=== PATIENT | female | born 1955 | race Asian ===

== ENCOUNTER 2017-12-07 03:24 | Emergency (ER) | payer MEDICAID ==
[~2017-12-07] VITALS: Ht 162.6 cm; Wt 45.4 kg
--- NOTE | 2017-12-07 04:22 | Emergency Room Report ---
History of Present Illness General Chief Complaint: CPR Source: Patient, EMS Present Illness HPI Is a 62-year-old [place] female came in as a CODE BLUE. She has a history of renal failure, cardiac history with a pacemaker and currently has some type of blood cancer that she is currently undergoing chemotherapy. She collapsed in front of her daughter and they called 911. Per EMS she was pulseless and no respiration. They performed CPR. They put an IO and gave her a total of 4 epinephrine and and one bicarbonate. She came in CPR in progress with bag-valve -mask. CPR continued here and she receive 2 more doses of epinephrine. There was never any spontaneous return of pulse. I did a bedside ultrasound of the heart and it showed no cardiac activity. A code was called and she pronounced at 3:30 AM. Allergies: Coded Allergies: UNABLE TO ASSESS (Unverified , 12/07/17) Patient History Past Medical History: see triage record, old chart reviewed Past Surgical History: none Pertinent Family History: none Social History: Denies: smoking Now: No Immunizations: other Reviewed Nursing Documentation: PMH: Agreed; PSxH: Agreed Nursing Documentation-PMH Past Medical History: No History, Except For Hx Pacemaker: Yes Hx Cancer: Yes - "Blood cancer" Hx Dialysis: Yes - Dialysis cath. on right upper chest Review of Systems All Other Systems: limited - secondary to patient's cardiac arrest Physical Exam Vital Signs Date Time Temp Pulse Resp B/P (MAP) Pulse Ox O2 Delivery O2 Flow Rate FiO2 12/07/17 03:25 0 0 12/07/17 03:25 85 Ambu-Bag 12/07/17 03:37 95.2 95.2 no pulse, no respiration Sp02 EP Interpretation: abnormal General Appearance: severe distress - unresponsive Head: normocephalic Eyes: bilateral eye Scleral Injection ENT: moist mucus membranes Neck: supple Respiratory: other - no respiration without [id number] Cardiovascular #1: other - no pulse without CPR; dialysis catheter in right upper chest. Pacemaker Gastrointestinal: soft Musculoskeletal: swelling - bilateral lower extremities Neurologic: other - no response Skin: jaundice Procedures Intubation Intubation : Consent: Emergent Intubation Method: orotracheal Tube Size (cm): 7.5 Breath Sounds after Intubation: equal Intubation Complications: no complications Post Intubation Xray: No Attempts: One Patient Tolerated: Well Complications: None Medical Decision Making Diagnostic Impression: Primary Impression: Cardiac arrest ER Course Patient presents in cardiac arrest. She has multiple medical problem. I called her oncologist Dr. Bernie Persaud. I spoke with the covering doctor who will let her know on Saturday. Last Vital Signs Date Time Temp Pulse Resp B/P (MAP) Pulse Ox O2 Delivery O2 Flow Rate FiO2 12/07/17 03:37 95.2 0 0 142/118 85 Ambu-Bag 95.2 Status: unchanged Disposition: Condition: Referrals: [facility],REFERRING (PCP) SAI GUZMÁN M.D. Dec 07, 2017 04:21
[2017-12-07 05:44] VITALS: BP 0/0
== END 2017-12-07 05:15 | disposition expired ==
LOC: EDBD 03:24 → EMR 03:40
DX: I46.9 Cardiac arrest, cause unspecified (principal); C49.9 Malignant neoplasm of connective and soft tissue, unspecified; Z79.899 Other long term (current) drug therapy; Z95.0 Presence of cardiac pacemaker
CPT/HCPCS: 31500; 99291